=== PATIENT | female | born 1945 | race Caucasian/White ===

== ENCOUNTER 2017-07-01 00:01 | Inpatient (IN) | payer OTHER, MEDICARE ==
[2017-07-01] VITALS (7 sets, daily range): BP systolic 86–122; BP diastolic 50–72; PULSE 66–121; RESP 14–20; TEMP 97.4–100.1; O2SAT 95–98
[~2017-07-01] VITALS: Ht 157.5 cm; Wt 50.8 kg
[2017-07-01 01:14] LABS: AUTOMATED NEUTROPHIL # 9.4 TH/MM3 (1.8-7.7); BASOPHIL # 0.1 TH/MM3 (0-0.2); BASOPHIL % 0.5 % (0.0-2.0); EOSINOPHIL % 0.1 % (0.0-4.0); HEMATOCRIT 44.5 % (35.0-46.0); HEMOGLOBIN 14.9 GM/DL (11.6-15.3); LYMPH % 14.7 % (9.0-44.0); LYMPHOCYTE # 1.8 TH/MM3 (1.0-4.8); MEAN CELL VOLUME 91.6 FL (80.0-100.0); MEAN CORPUSCULAR HEMOGLOBIN 30.7 PG (27.0-34.0); MEAN CORPUSCULAR HGB CONC 33.5 % (32.0-36.0); MEAN PLATELET VOLUME 9.6 FL (7.0-11.0); MONO % 8.3 % (0.0-8.0); NEUT % 76.4 % (16.0-70.0); PLATELET COUNT 238 TH/MM3 (150-450); RED BLOOD COUNT 4.86 MIL/MM3 (4.00-5.30); RED CELL DISTRIBUTION WIDTH 13.9 % (11.6-17.2); WHITE BLOOD COUNT 12.3 TH/MM3 (4.0-11.0)
[2017-07-01 01:16] LABS: BILIRUBIN, URINE NEG (NEG); BLOOD, URINE TRACE (NEG); GLUCOSE,URINE NEG (NEG); KETONE, URINE TRACE mg/dL (NEG); MUCUS URINE FEW /lpf (OCC); NITRITE,URINE NEG (NEG); SQUAMOUS EPITHELIAL CELL URINE 2 /hpf (0-5); URINE COLOR YELLOW (YELLW/STRAW); URINE LEUKOCYTE ESTERASE NEG (NEG)
[2017-07-01 01:37] LABS: BICARBONATE 22.3 MEQ/L (21.0-32.0); CALCIUM 8.9 MG/DL (8.5-10.1); CREATININE 1.06 MG/DL (0.50-1.00)
--- NOTE | 2017-07-01 03:20 | PD ---
HPI Chief Complaint: Psychiatric Symptoms Time Seen by Provider: 00:45 Travel History International Travel<30 days: No Contact w/Intl Traveler<30days: No Traveled to known affect area: No History of Present Illness HPI 72-year-old female presents to emergency department under [place] act for psychiatric evaluation. He has been experiencing worsening paranoia and having bizarre behavior. She is very disorganized in her history and unable to provide adequate information as to why she is here. She does deny any suicidal homicidal ideations. She tells me that she is "just tired." Denies any illicit drug use. Denies any acute medical needs at this time. Does tell me that she has not been taking her lithium as prescribed. PFSH Past Medical History Bipolar Disorder: Yes Social History Tobacco Use: Yes Substance Use: No Review of Systems Except as stated in HPI: all other systems reviewed are Neg Physical Exam Narrative GENERAL: Well-nourished elderly female patient, lying in bed in no acute distress. SKIN: Focused skin assessment warm/dry. HEAD: Atraumatic. Normocephalic. EYES: Pupils equal and round. No scleral icterus. No injection or drainage. ENT: No nasal bleeding or discharge. Mucous membranes pink and moist. NECK: Trachea midline. No JVD. CARDIOVASCULAR: Regular rate and rhythm. No murmur appreciated. RESPIRATORY: No accessory muscle use. Coarse, diminished, to auscultation. Breath sounds equal bilaterally. GASTROINTESTINAL: Abdomen soft, non-tender, nondistended. Hepatic and splenic margins not palpable. MUSCULOSKELETAL: No obvious deformities. No clubbing. No cyanosis. No edema. NEUROLOGICAL: Awake and alert. No obvious cranial nerve deficits. Motor grossly within normal limits. Normal speech. Data Data Last Documented VS Vital Signs Date Time Temp Pulse Resp B/P (MAP) Pulse Ox O2 Delivery O2 Flow Rate FiO2 07/01/17 02:08 102 14 122/72 (89) 98 07/01/17 00:04 97.4 Orders Orders Psych Screen (07/01/17 00:44) Complete Blood Count With Diff (07/01/17 00:45) Basic Metabolic Panel (Bmp) (07/01/17 00:45) Urinalysis - C+S If Indicated (07/01/17 00:45) [place] (Li) (07/01/17 00:45) Drug Screen, Random Urine (07/01/17 00:45) Alcohol (Ethanol) (07/01/17 00:45) Diet Regular Basic (07/01/17 Breakfast) Labs Laboratory Tests Test 07/01/17 00:05 White Blood Count 12.3 TH/MM3 Red Blood Count 4.86 MIL/MM3 Hemoglobin 14.9 GM/DL Hematocrit 44.5 % Mean Corpuscular Volume 91.6 FL Mean Corpuscular Hemoglobin 30.7 PG Mean Corpuscular Hemoglobin Concent 33.5 % Red Cell Distribution Width 13.9 % Platelet Count 238 TH/MM3 Mean Platelet Volume 9.6 FL Neutrophils (%) (Auto) 76.4 % Lymphocytes (%) (Auto) 14.7 % Monocytes (%) (Auto) 8.3 % Eosinophils (%) (Auto) 0.1 % Basophils (%) (Auto) 0.5 % Neutrophils # (Auto) 9.4 TH/MM3 Lymphocytes # (Auto) 1.8 TH/MM3 Monocytes # (Auto) 1.0 TH/MM3 Eosinophils # (Auto) 0.0 TH/MM3 Basophils # (Auto) 0.1 TH/MM3 CBC Comment DIFF FINAL Differential Comment Urine Color YELLOW Urine Turbidity CLEAR Urine pH 6.0 Urine Specific [place] 1.012 Urine Protein TRACE mg/dL Urine Glucose (UA) NEG mg/dL Urine Ketones TRACE mg/dL Urine Occult Blood TRACE Urine Nitrite NEG Urine Bilirubin NEG Urine Urobilinogen LESS THAN 2.0 MG/DL Urine Leukocyte Esterase NEG Urine RBC 3 /hpf Urine WBC 1 /hpf Urine Squamous Epithelial Cells 2 /hpf Urine Mucus FEW /lpf Microscopic Urinalysis Comment CULT NOT INDICATED Blood Urea Nitrogen 17 MG/DL Creatinine 1.06 MG/DL Random Glucose 110 MG/DL Calcium Level 8.9 MG/DL Sodium Level 134 MEQ/L Potassium Level 4.2 MEQ/L Chloride Level 101 MEQ/L Carbon Dioxide Level 22.3 MEQ/L Anion Gap 11 MEQ/L Estimat Glomerular Filtration Rate 51 ML/MIN Urine Opiates Screen NEG Urine Barbiturates Screen NEG Urine Amphetamines Screen NEG Urine Benzodiazepines Screen NEG [place] Level LESS THAN 0.1 MEQ/L Urine Cocaine Screen NEG Urine Cannabinoids Screen NEG Ethyl Alcohol Level 3 MG/DL MDM Medical Decision Making Medical Screen Exam Complete: Yes Emergency Medical Condition: Yes Medical Record Reviewed: Yes Differential Diagnosis Mood disorder versus personality disorder versus adjustment reaction disorder versus UTI Narrative Course 72-year-old female presents to the emergency department under [place] act for psychiatric evaluation. Patient appears nontoxic. She is without distress. Vital signs are stable. Lab work is reviewed in without acute abnormality. Patient does have some moderate renal insufficiency. Urine is clear. She is medically cleared to undergo psychiatric screening for further evaluation and disposition. Mental health screening discussed with the patient. Psychiatric screen ordered. Diagnosis Primary Impression: Mood disorder Additional Impression: Noncompliance with medication regimen Condition: Stable Jolanta Brewster Jul 01, 2017 03:20
[2017-07-01] MEDS ORDERED: diphenhydrAMINE HCL 50 MG/ML VIAL IM PRN (12:15)
[2017-07-01] MEDS ORDERED: MAGNESIUM HYDROXIDE SUSP 30 ML CUP PO PRN (12:15)
[2017-07-01] MEDS ORDERED: ALUMINUM/MAGNESIUM/SIMETH 30 ML CUP PO PRN (12:15)
[2017-07-01] MEDS ORDERED: ACETAMINOPHEN 325 MG TAB PO PRN (12:15)
[2017-07-01] MEDS ORDERED: LORazepam 2 MG/ML VIAL IM PRN (12:15)
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
[2017-07-01] MEDS ORDERED: METOPROLOL TARTRATE 25 MG TAB PO ONE (14:15)
[2017-07-01] MEDS ORDERED: METOPROLOL TARTRATE 25 MG TAB PO SCH (21:00)
[2017-07-01] MEDS: LORazepam 1 MG TAB PO PRN (21:00)
--- NOTE | 2017-07-01 23:16 | PD.CONS ---
[facility]. Reason for Consult Medical management. Primary Care Physician No Primary Care Physician Diagnoses: (1) Atrial flutter (2) Bipolar disorder, current episode mixed, severe, with psychotic features History of Present Illness Ms. Colon is a pleasant 72 year old female with a history of Bipolar disorder who was admitted to the psychiatry unit under Pedro act due to paranoia and having bizarre behavior. She denies any chest pain, shortness of breath, fever, chills. Upon admission, her heart rate was noted to be elevated and EKG indicated Atrial flutter. Patient denies any previous history of atrial flutter or fibrillation. She denies any cough, abdominal pain or changes in bowel or bladder habits. Review of Systems Except as stated in HPI: all other systems reviewed are Neg Past Family Social History Allergies: Coded Allergies: Sulfa (Sulfonamide Antibiotics) (Verified Allergy, Unknown, 07/01/17) Per Elysia - Pharmacist - [facility], [place], [place] [phone] - patient allergic to Sulfa in their profile. Past Medical History Bipolar disease. Past Surgical History Appendectomy Tonsillectomy Ectopic preg related surgery Reported Medications [place] Family History No family history of heart disease. Social History Smokes 10 cig a day, drinks alcohol socially. No illicit drugs. Physical Exam Vital Signs Vital Signs Date Time Temp Pulse Resp B/P (MAP) Pulse Ox O2 Delivery O2 Flow Rate FiO2 07/01/17 18:00 100.1 99 18 107/63 (78) 96 07/01/17 17:10 96/54 (68) 07/01/17 16:32 99.5 102 18 86/50 (62) 95 07/01/17 16:27 07/01/17 15:16 92 07/01/17 10:14 121 16 106/67 (80) 97 Room Air 07/01/17 02:08 102 14 122/72 (89) 98 07/01/17 00:04 97.4 66 20 111/72 (85) 98 Physical Exam GENERAL: This is a well-nourished, well-developed patient, in no apparent distress. SKIN: No rashes, ecchymoses or lesions. Warm and dry. HEAD: Atraumatic. Normocephalic. No temporal or scalp tenderness. EYES: Pupils equal round and reactive. No injection or drainage. ENT: Nose without bleeding, purulent drainage or septal hematoma. Airway patent. NECK: Trachea midline. No lymphadenopathy. Supple, nontender, no meningeal signs. CARDIOVASCULAR: Irreg, tachycardic without murmurs, gallops, or rubs. No JVD. RESPIRATORY: Clear to auscultation. Breath sounds equal bilaterally. No wheezes , rales, or rhonchi. GASTROINTESTINAL: Abdomen soft, non-tender, nondistended. No guarding. MUSCULOSKELETAL: Extremities without clubbing, cyanosis, or edema. NEUROLOGICAL: Awake and alert. Cranial nerves II through XII intact. No focal neurological deficits. Normal speech. Laboratory Laboratory Tests Test 07/01/17 00:05 White Blood Count 12.3 Red Blood Count 4.86 Hemoglobin 14.9 Hematocrit 44.5 Mean Corpuscular Volume 91.6 Mean Corpuscular Hemoglobin 30.7 Mean Corpuscular Hemoglobin Concent 33.5 Red Cell Distribution Width 13.9 Platelet Count 238 Mean Platelet Volume 9.6 Neutrophils (%) (Auto) 76.4 Lymphocytes (%) (Auto) 14.7 Monocytes (%) (Auto) 8.3 Eosinophils (%) (Auto) 0.1 Basophils (%) (Auto) 0.5 Neutrophils # (Auto) 9.4 Lymphocytes # (Auto) 1.8 Monocytes # (Auto) 1.0 Eosinophils # (Auto) 0.0 Basophils # (Auto) 0.1 CBC Comment DIFF FINAL Differential Comment Urine Color YELLOW Urine Turbidity CLEAR Urine pH 6.0 Urine Specific [place] 1.012 Urine Protein TRACE Urine Glucose (UA) NEG Urine Ketones TRACE Urine Occult Blood TRACE Urine Nitrite NEG Urine Bilirubin NEG Urine Urobilinogen LESS THAN 2.0 Urine Leukocyte Esterase NEG Urine RBC 3 Urine WBC 1 Urine Squamous Epithelial Cells 2 Urine Mucus FEW Microscopic Urinalysis Comment CULT NOT INDICATED Blood Urea Nitrogen 17 Creatinine 1.06 Random Glucose 110 Calcium Level 8.9 Sodium Level 134 Potassium Level 4.2 Chloride Level 101 Carbon Dioxide Level 22.3 Anion Gap 11 Estimat Glomerular Filtration Rate 51 Urine Opiates Screen NEG Urine Barbiturates Screen NEG Urine Amphetamines Screen NEG Urine Benzodiazepines Screen NEG [place] Level LESS THAN 0.1 Urine Cocaine Screen NEG Urine Cannabinoids Screen NEG Ethyl Alcohol Level 3 Result Diagram: 07/01/17 0005 07/01/17 0005 Assessment and Plan Problem List: (1) Atrial flutter ICD Code: I48.92 - Unspecified atrial flutter (2) Bipolar disorder, current episode mixed, severe, with psychotic features ICD Code: F31.64 - Bipolar disorder, current episode mixed, severe, with psychotic features Assessment and Plan Ms. Cloon is a pleasant 72 year old female with a history of Bipolar disorder who was admitted under [place] act due to paranoia and bizarre behavior. Upon admission, she was noted to have elevated heart rate. EKG indicated atrial flutter. - New onset Atrial flutter - Patient is currently asymptomatic. - TSH and other labs pending. - Will start patient on Metoprolol 25mg BID to control rate. - Her [id number] score is 2 (age, female). - While she would benefit from anti-coagulation, compliance is worrisome. - If patient is deemed to be competent, consider Apixaban 5mg BID. Otherwise Aspirin 81mg Qday could be considered. - Will obtain 2D echo. - Rate improved with metoprolol but may prove to be difficult to control. - Will consult [facility] Dr. Camarillo for possible consideration of RF ablation (inpatient or outpatient). - RF ablation has a very high success rate in Aflutter. - IF patient does not want ablation, we can continue beta adam. - K+ 4.2. Check magnesium level. - Bipolar disorder - Management per Psychiatry. Thank you for the consult. We will continue to follow this patient with you. David Bhatia DO Jul 01, 2017 23:16
[2017-07-02 06:24] VITALS: BP 86/32; PULSE 63; RESP 16; TEMP 98.6; O2SAT 98
[2017-07-02 06:36] VITALS: BP 98/56
[2017-07-02 07:27] LABS: AUTOMATED NEUTROPHIL # 5.4 TH/MM3 (1.8-7.7); BASOPHIL % 0.6 % (0.0-2.0); EOSINOPHIL % 0.2 % (0.0-4.0); HEMOGLOBIN 13.1 GM/DL (11.6-15.3); LYMPH % 20.6 % (9.0-44.0); LYMPHOCYTE # 1.6 TH/MM3 (1.0-4.8); MEAN CORPUSCULAR HGB CONC 34.4 % (32.0-36.0); MEAN PLATELET VOLUME 9.2 FL (7.0-11.0); MONO % 9.7 % (0.0-8.0); MONOCYTE # 0.8 TH/MM3 (0-0.9); NEUT % 68.9 % (16.0-70.0); PLATELET COUNT 214 TH/MM3 (150-450); RED BLOOD COUNT 4.22 MIL/MM3 (4.00-5.30); RED CELL DISTRIBUTION WIDTH 13.5 % (11.6-17.2); WHITE BLOOD COUNT 7.9 TH/MM3 (4.0-11.0)
[2017-07-02 07:50] LABS: ALBUMIN 2.5 GM/DL (3.4-5.0); ALT (GPT) 24 U/L (10-53); AST (GOT) 24 U/L (15-37); BICARBONATE 20.6 MEQ/L (21.0-32.0); BLOOD UREA NITROGEN 15 MG/DL (7-18); CALCIUM 8.2 MG/DL (8.5-10.1); CHLORIDE 105 MEQ/L (98-107); CHOLESTEROL 114 MG/DL (120-200); CREATININE 0.88 MG/DL (0.50-1.00); GLOMERULAR FILTRATION RATE 63 ML/MIN (>89); GLUCOSE,RANDOM 92 MG/DL (74-106); SODIUM (NA) 136 MEQ/L (136-145); TRIGLYCERIDES 102 MG/DL (42-150)
[2017-07-02 08:16] LABS: ALKALINE PHOSPHATASE 62 U/L (45-117); CHOLESTEROL/ HDL RATIO 1.95 RATIO; HDL CHOLESTEROL 58.4 MG/DL (40.0-60.0); LDL CHOLESTEROL 35 MG/DL (0-99); TOTAL BILIRUBIN ADULT 0.4 MG/DL (0.2-1.0)
[2017-07-02] MEDS ORDERED: APIXABAN 5 MG TABLET PO ONE (09:15)
--- NOTE | 2017-07-02 09:26 | RADRPT ---
EXAM DATE/TIME: 07/02/2017 08:17 [place] COMPARISON: No previous studies available for comparison. INDICATIONS : Fever. Patient states no chest complaints. MEDICAL HISTORY : None. SURGICAL HISTORY : None. ENCOUNTER: Initial ACUITY: 1 day PAIN SCORE: 0/10 LOCATION: Bilateral chest FINDINGS: A single AP erect portable view the chest was obtained and demonstrates streaky infiltrate in the rig ht lung base. The left lung is clear. There is no effusion. The cardiomediastinal contours are unrema rkable. Osseous structures are intact. There is a mild to moderate scoliosis. CONCLUSION: Radiopacity in the right lung base most characteristic of pneumonia. Luis Miguel Aaron MD on July 02, 2017 at 9:23 Board Certified Radiologist. This report was verified electronically.
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
[2017-07-02] MEDS ORDERED: PILL SPLITTER OTHER PRN (09:45)
[2017-07-02] MEDS: ARIPiprazole 10 MG TAB PO SCH (11:34)
--- NOTE | 2017-07-02 11:50 | HHI.PR ---
Subjective Remarks Follow up for Atrial flutter. Currently patient is in NSR. No acute concerns. She does not want to undergo any procedure (ablation). However, if her Aflutter returns, she will consider. Objective Vitals Vital Signs Date Time Temp Pulse Resp B/P (MAP) Pulse Ox O2 Delivery O2 Flow Rate FiO2 07/02/17 06:36 98/56 (70) 07/02/17 06:24 98.6 63 16 86/32 (50) 98 07/01/17 18:00 100.1 99 18 107/63 (78) 96 07/01/17 17:10 96/54 (68) 07/01/17 16:32 99.5 102 18 86/50 (62) 95 07/01/17 16:27 07/01/17 15:16 92 I/O 07/01/17 07/01/17 07/01/17 07/02/17 07/02/17 07/02/17 06:59 14:59 22:59 06:59 14:59 22:59 Intake Total 480 ml 240 ml Balance 480 ml 240 ml Intake Oral 480 ml 240 ml # Voids 1 Result Diagram: 07/02/17 0711 07/02/17 0711 Imaging Last Impressions Chest X-Ray 07/02/17 0800 Signed Impressions: Service Date/Time: Sunday, July 02, 2017 08:17 - CONCLUSION: Radiopacity in the right lung base most characteristic of pneumonia. Luis Miguel Aaron MD Objective Remarks GENERAL: Alert, Oriented x 3, NAD. SKIN: Warm and dry. HEAD: Normocephalic. EYES: No scleral icterus. No injection or drainage. NECK: Supple, trachea midline. No JVD or lymphadenopathy. CARDIOVASCULAR: Regular rate and rhythm without murmurs, gallops, or rubs. RESPIRATORY: Breath sounds equal bilaterally. No accessory muscle use. GASTROINTESTINAL: Abdomen soft, non-tender, nondistended. MUSCULOSKELETAL: No cyanosis, or edema. BACK: Nontender without obvious deformity. No CVA tenderness. Procedures Echo 07/02/2017 Normal left ventricular size. Wall thickness is normal. The left ventricular systolic function is hyperdynamic with an estimated ejection fraction in the range of 65- 70%. Mild mitral valve regurgitation. There is mild tricuspid valve regurgitation. The estimated pulmonary arterial pressure is 26.8 mmHg. A/P Problem List: (1) Atrial flutter ICD Code: I48.92 - Unspecified atrial flutter Status: Resolved (2) Bipolar disorder, current episode mixed, severe, with psychotic features ICD Code: F31.64 - Bipolar disorder, current episode mixed, severe, with psychotic features Assessment and Plan Ms. Colon is a pleasant 72 year old female with a history of Bipolar disorder who was admitted to the psychiatry unit under Pedro act due to paranoia and having bizarre behavior. She was found to have Aflutter. - New onset atrial flutter - Currently in NSR and asymptomatic. - Does not want to undergo any procedure. Will cancel Cardiology consult. - Continue BB. [id number] score 2 (age, female). - If patient is deemed to be competent, consider Apixaban 5mg BID. Otherwise Aspirin 81mg Qday could be considered. - Echo --> EF 65-70%. - Possible pneumonia - started Levaquin. - Bipolar disorder - management per psychiatry. Full code. Ambulation. David Bhatia DO Jul 02, 2017 11:50
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
--- NOTE | 2017-07-02 14:58 | EKG ---
Date Performed: 07/01/2017 Time Performed: 13:37:39 PTAGE: 72 years EKG: ATRIAL FLUTTER/TACHYCARDIA WITH RAPID VENTRICULAR RESPONSE MARKED LEFT AXIS DEVIATION POSSI BLE RIGHT VENTRICULAR CONDUCTION DELAY SEPTAL MYOCARDIAL INFARCTION ABNORMAL ECG NO PREVIOUS TRACING Clinical correlation strongly recommended. DOCTOR: Dez Angel Interpretating Date/Time 07/02/2017 14:57:00
--- NOTE | 2017-07-02 14:58 | EKG ---
Date Performed: 07/02/2017 Time Performed: 08:56:07 PTAGE: 72 years EKG: Sinus rhythm POSSIBLE LEFT ATRIAL ENLARGEMENT MARKED LEFT AXIS DEVIATION POSSIBLE RIGHT VENTRICULAR CONDUCTION DE LAY ABNORMAL ECG PREVIOUS TRACING : 07/01/2017 13.37 Compared to prior tracing, sinus rhythm replaces atrial flu tter. DOCTOR: Dez Angel Interpretating Date/Time 07/02/2017 14:57:20
--- NOTE | 2017-07-02 15:07 | ECHRPT ---
Indication: ATRIAL FIB/FLUTTER CONCLUSIONS Normal left ventricular size. Wall thickness is normal. The left ventricular systolic function is hyperdynamic with an estimated ejection fraction in the ra nge of 65- 70%. Mild mitral valve regurgitation. There is mild tricuspid valve regurgitation. The estimated pulmonary arterial pressure is 26.8 mmHg. BP: 98 / 56 HR: 70 Rhythm: Sinus MEASUREMENTS (Male / Female) Normal Values Technical Quality:Fair 2D ECHO LV Diastolic Diameter PLAX 3.9 cm 4.2 - 5.9 / 3.9 - 5.3 cm LV Systolic Diameter PLAX 2.8 cm IVS Diastolic Thickness 0.7 cm 0.6 - 1.0 / 0.6 - 0.9 cm LVPW Diastolic Thickness 0.7 cm 0.6 - 1.0 / 0.6 - 0.9 cm LV Relative Wall Thickness 0.4 RV Internal Dim ED PLAX 2.1 cm LVOT Diameter 2.0 cm Aortic Root Diameter 2.6 cm M-MODE AV Cusp Separation MM 1.8 cm DOPPLER AV Peak Velocity 86.9 cm/s AV Peak Gradient 3.0 mmHg AV Mean Gradient 2.0 mmHg AV Velocity Time Integral 15.0 cm LVOT Peak Velocity 82.0 cm/s LVOT Peak Gradient 2.7 mmHg LVOT Velocity Time Integral 13.4 cm AV Area Cont Eq vti 2.7 cm AV Area Cont Eq pk 2.8 cm Mitral E Point Velocity 68.1 cm/s Mitral A Point Velocity 36.0 cm/s Mitral E to A Ratio 1.9 LV E' Lateral Velocity 6.5 cm/s Mitral E to LV E' Lateral Ratio 10.4 LV E' Septal Velocity 7.1 cm/s Mitral E to LV E' Septal Ratio 9.6 TR Peak Velocity 205.0 cm/s TR Peak Gradient 16.8 mmHg Right Atrial Pressure 10.0 mmHg Pulmonary Artery Systolic Pressu 26.8 mmHg Right Ventricular Systolic Press 26.8 mmHg PV Peak Velocity 55.6 cm/s PV Peak Gradient 1.2 mmHg FINDINGS LEFT VENTRICLE Normal left ventricular size. Wall thickness is normal. The left ventricular systolic function is hyperdynamic with an estimated ejection fraction in the ra nge of 65- 70%. RIGHT VENTRICLE Normal right ventricular size and systolic function. LEFT ATRIUM The left atrial size is normal. RIGHT ATRIUM The right atrial size is normal. ATRIAL SEPTUM Normal atrial septal thickness without atrial level shunting by limited color doppler interrogation. AORTA The aortic root and proximal ascending aorta are normal in size on limited imaging. MITRAL VALVE Mild mitral valve regurgitation. AORTIC VALVE Trileaflet aortic valve. No aortic valve stenosis or regurgitation. TRICUSPID VALVE There is mild tricuspid valve regurgitation. The estimated pulmonary arterial pressure is 26.8 mmHg. PULMONARY VALVE No pulmonary valve regurgitation or stenosis. VESSELS The inferior vena cava is normal in size. PERICARDIUM No pericardial effusion. Jermaine Huitron MD, FACC, [facility] (Electronically Signed) Final Date:02 July 2017 15:06
[2017-07-02] MEDS: LEVOFLOXACIN 750 MG TAB PO SCH (18:16)
[2017-07-02 18:31] VITALS: BP 115/64; PULSE 83; RESP 18; TEMP 98.4; O2SAT 96
[2017-07-02] MEDS: METOPROLOL TARTRATE 25 MG TAB PO SCH (20:46)
[2017-07-02] MEDS: APIXABAN 5 MG TABLET PO SCH (20:47)
[2017-07-03] MEDS ORDERED: guaiFENesin/CODEINE SYRUP 200 MG/20 MG/10 ML CUP PO ONE
[2017-07-03 07:07] VITALS: BP 94/52; PULSE 74; RESP 18; TEMP 97.9; O2SAT 97
--- NOTE | 2017-07-03 08:36 | HHI.PR ---
Subjective Remarks Patient states that she feels good. Has not had any shortness of breath. She had previous productive cough however overnight has had less cough and now has transitioned to a dry cough. She denies any chest pains. She denies any palpitations. She states that she would like to be discharged and follow-up with her primary care physician. She denies any chills or fever. Objective Vitals Vital Signs Date Time Temp Pulse Resp B/P (MAP) Pulse Ox O2 Delivery O2 Flow Rate FiO2 07/03/17 07:07 97.9 74 18 94/52 (66) 97 07/02/17 18:31 98.4 83 18 115/64 (81) 96 I/O 07/02/17 07/02/17 07/02/17 07/03/17 07/03/17 07/03/17 07:00 15:00 23:00 07:00 15:00 23:00 Intake Total 480 ml 440 ml 200 ml 480 ml Balance 480 ml 440 ml 200 ml 480 ml Intake Oral 480 ml 440 ml 200 ml 480 ml # Voids 1 2 Result Diagram: 07/02/17 0711 07/02/17 0711 Other Results Item Value Date Time Thyroid Stimulating Hormone 3rd Gen 2.060 uIU/ML 07/02/17 0711 Magnesium Level 2.2 MG/DL 07/01/17 0005 Imaging Last 48 hours Impressions Chest X-Ray 07/02/17 0800 Signed Impressions: Service Date/Time: Sunday, July 02, 2017 08:17 - CONCLUSION: Radiopacity in the right lung base most characteristic of pneumonia. Luis Miguel Aaron MD Objective Remarks GENERAL: This is a well-nourished, well-developed patient, in no apparent distress. CARDIOVASCULAR: Regular rate and rhythm RESPIRATORY: Right base crackles with some diminished breath sounds GASTROINTESTINAL: Abdomen soft, non-tender, nondistended. Normal active bowel sounds MUSCULOSKELETAL: Extremities without clubbing, cyanosis, or edema. NEURO: Alert & Oriented x4 to person, place, time, situation. Moves all ext x4 A/P Problem List: (1) Atrial flutter ICD Code: I48.92 - Unspecified atrial flutter Status: Resolved (2) Bipolar disorder, current episode mixed, severe, with psychotic features ICD Code: F31.64 - Bipolar disorder, current episode mixed, severe, with psychotic features Assessment and Plan 72 year old female with a history of Bipolar disorder who was admitted under Pedro act due to paranoia and bizarre behavior. Upon admission, she was noted to have elevated heart rate. EKG indicated atrial flutter. 1. New onset Atrial flutter and now in normal sinus rhythm and resolved. - Follow-up as an outpatient. - Patient is currently asymptomatic. - TSH and mag levels within normal limits - Will continue patient on Metoprolol 25mg BID to control rate. - Her [id number] score is 2 (age, female). - While she would benefit from anti-coagulation, compliance is worrisome. - If patient is deemed to be competent, consider Apixaban 5mg BID. Otherwise Aspirin 81mg Qday could be considered. - 2-D echo showed normal ejection fraction. 2. Upper respiratory infection with early community-acquired pneumonia on chest x-ray. Patient currently has good room air sats. Symptoms has improved since starting Levaquin. We'll continue antibiotics course. 3. Bipolar disorder - Management per Psychiatry. Kelsea Georges MD Jul 03, 2017 08:36
[2017-07-03] MEDS: ARIPiprazole 10 MG TAB PO SCH (09:00)
[2017-07-03] MEDS: APIXABAN 5 MG TABLET PO SCH ×2 (09:32→20:23)
[2017-07-03] MEDS: METOPROLOL TARTRATE 25 MG TAB PO SCH ×2 (09:33→20:23)
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
[2017-07-03] MEDS: LEVOFLOXACIN 750 MG TAB PO SCH (15:37)
[2017-07-03] MEDS: guaiFENesin/DEXTROMETHORPHAN 200 MG/20 MG/10 ML CUP PO PRN (15:38)
[2017-07-03] MEDS ORDERED: PADIMATE (CHAPSTICK) 4.5 GM TUBE TOPICAL PRN (16:45)
[2017-07-03 18:00] VITALS: BP 110/55; PULSE 70; RESP 17; TEMP 98.3; O2SAT 98
[2017-07-03] MEDS: traZODone HCL 50 MG TAB PO SCH (20:23)
[2017-07-03] MEDS: LORazepam 1 MG TAB PO PRN (20:23)
[2017-07-03] MEDS: diphenhydrAMINE HCL 50 MG CAP PO PRN (20:23)
[2017-07-04 06:11] VITALS: BP 86/60; PULSE 71; RESP 16; TEMP 98.1; O2SAT 97
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
[2017-07-04] MEDS: METOPROLOL TARTRATE 25 MG TAB PO SCH ×2 (09:54→22:07)
[2017-07-04] MEDS: APIXABAN 5 MG TABLET PO SCH ×2 (09:55→22:07)
[2017-07-04] MEDS: ARIPiprazole 15 MG TAB PO SCH (09:55)
[2017-07-04] MEDS: LEVOFLOXACIN 750 MG TAB PO SCH (15:35)
[2017-07-04 18:00] VITALS: BP 109/58; PULSE 63; RESP 16; TEMP 97.8; O2SAT 99
[2017-07-04] MEDS: LITHIUM CARBONATE 300 MG TAB PO SCH (22:06)
[2017-07-04] MEDS: traZODone HCL 50 MG TAB PO SCH (22:06)
[2017-07-04] MEDS: diphenhydrAMINE HCL 50 MG CAP PO PRN (22:09)
[2017-07-05] MEDS: guaiFENesin/DEXTROMETHORPHAN 200 MG/20 MG/10 ML CUP PO PRN ×2 (04:40→10:45)
[2017-07-05 06:00] VITALS: BP 100/55; PULSE 59; RESP 18; TEMP 97.4; O2SAT 96
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
[2017-07-05] MEDS: METOPROLOL TARTRATE 25 MG TAB PO SCH ×3 (10:38→22:11)
[2017-07-05] MEDS: APIXABAN 5 MG TABLET PO SCH ×2 (10:45→22:07)
[2017-07-05] MEDS: ARIPiprazole 15 MG TAB PO SCH (10:45)
[2017-07-05] MEDS: LITHIUM CARBONATE 300 MG TAB PO SCH ×2 (10:45→22:11)
[2017-07-05] MEDS: LEVOFLOXACIN 750 MG TAB PO SCH (14:51)
[2017-07-05 16:47] VITALS: BP 98/50; PULSE 60; RESP 17; TEMP 97.7; O2SAT 97
[2017-07-05] MEDS: traZODone HCL 50 MG TAB PO SCH (22:07)
[2017-07-06] VITALS: BP 125/62; PULSE 62; RESP 20; TEMP 97.5; O2SAT 98
[2017-07-06 06:01] VITALS: BP 102/68; PULSE 70; RESP 20; TEMP 97.8; O2SAT 94
[2017-07-06 08:00] VITALS: BP 120/68
[2017-07-06] MEDS: ARIPiprazole 15 MG TAB PO SCH (10:05)
[2017-07-06] MEDS: METOPROLOL TARTRATE 25 MG TAB PO SCH ×2 (10:05→21:00)
[2017-07-06] MEDS: APIXABAN 5 MG TABLET PO SCH ×2 (10:05→22:19)
[2017-07-06] MEDS: LITHIUM CARBONATE 300 MG TAB PO SCH ×2 (10:05→22:20)
[2017-07-06] MEDS: LEVOFLOXACIN 750 MG TAB PO SCH (16:33)
--- NOTE | 2017-07-06 17:15 | HHI.PYPN ---
Subjective Remarks Pt seen and discussed with staff. She has been compliant and cooperative with care. She has been interacting in milieu and engaging in future planning. No medication side effects. No SI/HI. Mental Status Examination Appearance: Appropriate Consciousness: Alert Orientation: Person, Place, Date/Time Motor Activity: Normal gait Speech: Unremarkable Language: Adequate Fund of Knowledge: Adequate Attention and Concentration: Adequate Memory: Unremarkable Mood: Appropriate Affect: Appropriate Thought Process & Associations: Linear Thought Content: Appropriate, Delusional Hallucination Type: None Delusion Type: None Suicidal Ideation: No Suicidal Plan: No Suicidal Intention: No Homicidal Ideation: No Homicidal Plan: No Homicidal Intention: No Insight: Poor Judgment: Impulsive Results Vitals/IOs Vital Signs Date Time Temp Pulse Resp B/P (MAP) Pulse Ox O2 Delivery O2 Flow Rate FiO2 07/06/17 06:01 97.8 70 20 102/68 (79) 94 Assessment & Plan Problem List: (1) Bipolar disorder, current episode mixed, severe, with psychotic features ICD Codes: F31.64 - Bipolar disorder, current episode mixed, severe, with psychotic features Assessment & Plan Pt improving. Continue current tx plan. Estimated LOS: days Justification for Cont. Inpt. risk of decompensation Danielle Truong MD Jul 06, 2017 17:15
[2017-07-06 18:24] VITALS: BP 117/58; PULSE 62; RESP 19; TEMP 97.5; O2SAT 100
[2017-07-06] MEDS: diphenhydrAMINE HCL 50 MG CAP PO PRN (22:19)
[2017-07-06] MEDS: traZODone HCL 50 MG TAB PO SCH (22:20)
[2017-07-07 05:37] VITALS: BP 104/76; PULSE 63; RESP 18; TEMP 97.7; O2SAT 98
[2017-07-07] MEDS: METOPROLOL TARTRATE 25 MG TAB PO SCH ×2 (09:00→21:23)
[2017-07-07] MEDS: ARIPiprazole 15 MG TAB PO SCH (09:18)
[2017-07-07] MEDS: APIXABAN 5 MG TABLET PO SCH ×2 (09:18→21:22)
[2017-07-07] MEDS: LITHIUM CARBONATE 300 MG TAB PO SCH ×2 (09:18→21:22)
--- NOTE | 2017-07-07 14:48 | HHI.PYPN ---
Subjective Remarks Pt seen and discussed with staff. She has been compliant and cooperative. No medication side effects. No agitation or aggression. Making plans to return to [place] where she has family support. Sleep and appetite are good. She has been participating in milieu activities. No SI/HI Mental Status Examination Appearance: Appropriate Consciousness: Alert Orientation: Person, Place, Date/Time Motor Activity: Normal gait Speech: Unremarkable Language: Adequate Fund of Knowledge: Adequate Attention and Concentration: Adequate Memory: Unremarkable Mood: Appropriate Affect: Appropriate Thought Process & Associations: Linear Thought Content: Appropriate, Delusional Hallucination Type: None Delusion Type: None Suicidal Ideation: No Suicidal Plan: No Suicidal Intention: No Homicidal Ideation: No Homicidal Plan: No Homicidal Intention: No Insight: Poor Judgment: Impulsive Results Vitals/IOs Vital Signs Date Time Temp Pulse Resp B/P (MAP) Pulse Ox O2 Delivery O2 Flow Rate FiO2 07/07/17 05:37 97.7 63 18 104/76 (85) 98 Intake and Output 07/07/17 07/07/17 07/08/17 08:00 16:00 00:00 Intake Total 240 ml 240 ml Balance 240 ml 240 ml Assessment & Plan Problem List: (1) Bipolar disorder, current episode mixed, severe, with psychotic features ICD Codes: F31.64 - Bipolar disorder, current episode mixed, severe, with psychotic features Assessment & Plan Pt improving. Continue current tx plan and discharge planning. Estimated LOS: days Justification for Cont. Inpt. risk of decompensation Danielle Truong MD Jul 07, 2017 14:48
[2017-07-07] MEDS: LEVOFLOXACIN 750 MG TAB PO SCH (15:00)
[2017-07-07 17:17] VITALS: BP 153/83; PULSE 99; RESP 20; TEMP 97.8; O2SAT 98
[2017-07-07 17:18] VITALS: BP 140/90; PULSE 60; RESP 18; TEMP 98.4; O2SAT 99
[2017-07-07] MEDS: traZODone HCL 50 MG TAB PO SCH (21:22)
[2017-07-08 05:50] VITALS: BP 113/55; PULSE 59; RESP 17; TEMP 98.5; O2SAT 98
[2017-07-08] MEDS: LITHIUM CARBONATE 300 MG TAB PO SCH ×2 (08:44→21:11)
[2017-07-08] MEDS: METOPROLOL TARTRATE 25 MG TAB PO SCH ×2 (08:44→21:10)
[2017-07-08] MEDS: APIXABAN 5 MG TABLET PO SCH ×2 (08:44→21:11)
[2017-07-08] MEDS: ARIPiprazole 15 MG TAB PO SCH (08:45)
--- NOTE | 2017-07-08 12:51 | HHI.PYPN ---
Subjective Remarks History for follow, chart review. Discussion with nursing staff reported the patient to comply medications; cooperative pleasant with staff. Patient is found in the day room was cooperative with interview today. Patient states that the weekend went well and that she feels "90% better and continues a plan to go to [place] to stay with her friend Lee Horn. She states that she had been in contact with this person for the past couple of days last spoke with her friend 2 days ago. Patient denies any auditory or visual hallucinations, denies any delusions but continues to report that she is not returning back to her and evaluation will communicate with evidence to her lacquer dipping machine operator. Patient states that when she gets a tendency she has much more support there and is planning to continue her follow-up and treatment in [place]. Collateral contact: Lee Horn [phone] Review of Systems Except as stated in HPI: all other systems reviewed are Neg Mental Status Examination Appearance: Appropriate Consciousness: Alert Orientation: Person, Place, Date/Time Motor Activity: Normal gait Speech: Unremarkable Language: Adequate Fund of Knowledge: Adequate Attention and Concentration: Adequate Memory: Unremarkable Mood: Appropriate Affect: Appropriate Thought Process & Associations: Goal directed, Linear Thought Content: Appropriate Hallucination Type: None Delusion Type: None Suicidal Ideation: No Suicidal Plan: No Suicidal Intention: No Homicidal Ideation: No Homicidal Plan: No Homicidal Intention: No Insight: Fair Judgment: Impulsive Results Vitals/IOs Vital Signs Date Time Temp Pulse Resp B/P (MAP) Pulse Ox O2 Delivery O2 Flow Rate FiO2 07/08/17 05:50 98.5 59 17 113/55 (62) 98 Assessment & Plan Problem List: (1) Bipolar disorder, current episode mixed, severe, with psychotic features ICD Codes: F31.64 - Bipolar disorder, current episode mixed, severe, with psychotic features Assessment & Plan Patient this time noted to be with stable mood, not noted to have pressured speech, organized. Process continues to state wanted to go to [place] and established her care there with a friend whom she will be staying with Lee Horn. Will order lithium level today. Treatment he will attempt to contact her friend whom she plans on staying with appropriate discharge planning. Continue current treatment. Discharge planning in progress Justification for Cont. Inpt. At risk for further decompensation at lower level of care Discharge Planning To be determined Sammy Young MD Jul 08, 2017 12:51
[2017-07-08] MEDS: LEVOFLOXACIN 750 MG TAB PO SCH (15:07)
[2017-07-08] MEDS: traZODone HCL 50 MG TAB PO SCH (21:11)
[2017-07-09 05:23] VITALS: BP 137/68; PULSE 64; RESP 17; TEMP 97.3; O2SAT 97
[2017-07-09 08:44] VITALS: BP 137/68; PULSE 64; RESP 17; TEMP 97.3; O2SAT 97
[2017-07-09] MEDS: ARIPiprazole 15 MG TAB PO SCH (09:47)
[2017-07-09] MEDS: APIXABAN 5 MG TABLET PO SCH (09:47)
[2017-07-09] MEDS: LITHIUM CARBONATE 300 MG TAB PO SCH (09:47)
[2017-07-09] MEDS: METOPROLOL TARTRATE 25 MG TAB PO SCH (09:47)
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
[2017-07-09 11:54] LABS: BICARBONATE 26.4 MEQ/L (21.0-32.0); CALCIUM 9.8 MG/DL (8.5-10.1)
[2017-07-09] MEDS ORDERED: APIX5TAB PO (13:40)
[2017-07-09] MEDS ORDERED: LITH300T3 PO (13:40)
[2017-07-09] MEDS ORDERED: TRAZ50TA12 PO (13:40)
[2017-07-09] MEDS ORDERED: METO25TA3 PO (13:40)
[2017-07-09] MEDS ORDERED: ARIP1TAB13 PO (13:40)
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
== END 2017-07-09 15:00 | disposition home or self-care (01) | DRG 885 ==
LOC: NEPJ 00:01 → NEDA 12:14 → H4EA 16:23 → H260 07-05 23:59
PROVIDERS: ADMIT Student in an Organized Health Care Education/Training Program; ATTEND Student in an Organized Health Care Education/Training Program
DX: F31.64 Bipolar disorder, current episode mixed, severe, with psychotic features (principal); N17.9 Acute kidney failure, unspecified; J18.9 Pneumonia, unspecified organism; I48.92 Unspecified atrial flutter; Z91.14 Patient's other noncompliance with medication regimen; J06.9 Acute upper respiratory infection, unspecified; R03.1 Nonspecific low blood-pressure reading; Z59.0 Homelessness; F17.210 Nicotine dependence, cigarettes, uncomplicated
CPT/HCPCS: 71045; 80048; 80053; 80061; 80178; 80307; 81001; 82306; 82607; 83036; 83735; 84443; 85025; 93005; 93306; 99285; Q0163